=== PATIENT | male | born 1955 | race African-American/Black ===

== ENCOUNTER 2017-01-10 10:27 | Emergency (ER) | payer OTHER ==
--- NOTE | 2017-01-10 11:43 | DIAGNOSTIC IMAGING REPORT ---
PROCEDURE: XR RIBS UNILAT W/PA CHEST-LT INDICATION: PAIN TECHNIQUE: Two views of the left ribs with single PA view chest. COMPARISON: Chest 06/12/2015 FINDINGS: LEFT RIBS: There is a fracture of the left ninth rib. No suspicious rib lesions. CHEST: Normal cardiomediastinal contour. Clear lungs without pleural effusion, pneumothorax, or contusion. The other visible osseous structures are intact. IMPRESSION: 1. Fracture left 9th rib 2. No pneumothorax
--- NOTE | 2017-01-10 12:28 | ED ORDER SUMMARY ---
..... Patient: CAMMY JORDAN OrderSheet [facility] VisitID: [id number] [address] [place] [address] 61y, M Registration Date/Time: 01/10/2017 ORDER SHEET Weight: 68.0 kg (stated) Allergies: No Known Drug Allergy GENERAL ORDERS: Ribs Unilat w PA Chest Left Urgent (10:57 01/10/2017 Rosa Chris) (k 10:59 Ana) (11:25 Renaldo Hightower) MEDICATION ORDERS: IV FLUIDS: ORDER SHEET NOTES: [Electronically signed by Victorino Wheeler Dr. (21:44 01/10/2017)] [Electronically signed by Tatum Lopez R.N. (09:43 01/11/2017)] [Electronically locked/signed by Tatum Lopez R.N. (09:43 01/11/2017)]
--- NOTE | 2017-01-10 12:28 | ED NURSING NOTES ---
Clinical Report - Nurses Formerly [facility] [address] [place] [address] 01/10/2017 10:27 Patient: CAMMY JORDAN TRIAGE Triage time 10:39. Acuity: LEVEL 3. Chief Complaint: SHORTNESS OF BREATH and DIFFICULTY BREATHING. 10:39 01/10/17. 10:39 01/10/17. Alert. No acute distress. SEPSIS SCREEN: Sepsis Screen. Negative (no infection suspected/documented). --10:43 Jeremy Rose R.N. 10:39 01/10/17. BP: 157/100. HR: 102. RR: 20. O2 saturation: 97% on room air. Temp: 98.7 F (oral). Pain level now: 04/09. --10:43 Jeremy Rose R.N. ( Pt states last time he saw his PCP was 2 years ago, family states pt cannot see micro computer specialist until July). --10:46 Jeremy Rose R.N. Weight: 68 kg stated. Height/Length: 67 inches Per Patient. BMI: 23.5. --10:39 Jeremy Rose R.N. Medications Albuterol Sulfate HFA Inhalation, as needed. --10:41 Jeremy Rose R.N. Flonase Nasal. PredniSONE Oral 40 mg, daily. --10:41 Jeremy Rose R.N. Symbicort Inhalation. --10:42 Jeremy Rose R.N. Medication/allergy information source: the patient and patient's family. --10:43 Jeremy Rose R.N. Allergies No Known Drug Allergy. --10:41 Jeremy Rose R.N. History Arrived by private vehicle. Historian: patient. Accompanied by family. Primary physician (CORNELIUS LRENER). 10:39 01/10/17. ( Last Sunday, pt said he coughed and might of fractured a rib.). Treatment MODELING INSTRUCTOR: None. SOCIAL HX: Smoker- current status unknown (Quit 3 years ago). Heavy alcohol use; consumes 12-pack of beer a day. No drug use. No infectious disease exposure. ABUSE ASSESSMENT: No report of abuse. FALL RISK ASSESSMENT: Fall risk assessment completed. No fall risk identified. NUTRITIONAL RISK ASSESSMENT: The nutritional risk assessment revealed no deficiencies. FUNCTIONAL ASSESSMENT: Functional assessment: no impairments noted. LEARNING NEEDS ASSESSMENT: The learning needs assessment revealed no barriers. SKIN INTEGRITY ASSESSMENT: Skin integrity risk assessment completed. No skin integrity risk identified. --10:43 Jeremy Rose R.N. PAST MEDICAL HX: Immunizations: up-to-date. --10:43 Jeremy Rose R.N. PROBLEMS: Tachycardia. Chest Wall Pain. Atypical Chest Pain. Home oxygen. Alcoholism. Emphysema. COPD - Chronic Obstructive Pulmonary Disease. --10:42 Jeremy Rose R.N. ADDITIONAL SURGERIES: no known surgeries. Assessment 10:39 01/10/17. --10:43 Jeremy Rose R.N. Interventions 10:39 01/10/17. 10:39 01/10/17. ID and allergy band on patient. To treatment room. --10:43 Jeremy Rose R.N. PHYSICAL ASSESSMENT 10:43 01/10/17. Ambulatory to room. GENERAL / NEURO / PSYCH: Alert. Oriented X 4. RESPIRATORY: Mild respiratory distress. The patient can speak in full sentences. CVS: Capillary refill less than 2 seconds. SKIN: Skin is warm and dry. --10:43 Jeremy Rose R.N. NURSING PROGRESS NOTES 10:43 01/10/17. Two patient identifiers checked. Call light placed in reach. Side rails up x 2. Bed placed in lowest position. Brakes of bed on. Brakes of chair on. --10:43 Jeremy Rose R.N. 10:43 01/10/17. The plan of care for this patient has been created. Head of bed elevated. --10:43 Jeremy Rose R.N. 10:43 01/10/17. Patient ready for evaluation- chart flagged and notification provided. --10:43 Jeremy Rose R.N. 10:44 01/10/17. Pulse oximeter and NIBP monitor placed on patient; monitor alarms on. --10:44 Jeremy Rose R.N. 10:45 01/10/17. --10:45 Jeremy Rose R.N. 10:45 01/10/17. HR: 104. O2 saturation: 96% on room air. --10:45 Jeremy Rose R.N. 10:53 01/10/17. --10:54 Jeremy Rose R.N. 10:53 01/10/17. HR: 97. O2 saturation: 95% on room air. --10:54 Jeremy Rose R.N. 11:50 01/10/17. --11:50 Jeremy Rose R.N. 11:49 01/10/17. BP: 134/99. HR: 96. RR: 18. O2 saturation: 95%. Pain level now: 0/10. --11:50 Jeremy Rose R.N. 12:19 01/10/17. Patient and family informed about reason for wait and about plan of care. --12:19 Jeremy Rose R.N. 12:20 01/10/17. --12:20 Jeremy Rose R.N. 12:19 01/10/17. HR: 78. RR: 18. O2 saturation: 98% on room air. --12:20 Jeremy Rose R.N. DISPOSITION / DISCHARGE Departure time: 1238. Condition at departure: improved and stable. Reviewed medication(s) side effects, precautions, dosing and course information. Prescription(s) given to the patient. Activity restrictions reviewed. Patient and air drill operator verbalized understanding. Written instructions provided in [place]. The patient was discharged by the physician. He was discharged home and accompanied by air drill operator. He left the Emergency Department ambulatory and via private vehicle. Sales Merchandising Specialist driving. --12:39 Trei Jordan R.N. 12:38 01/10/17. BP: 144/93. HR: 89. RR: 16. O2 saturation: 97% on room air. Temp: 98.8 F. Pain level now 7/10. --12:39 Teri Jordan R.N. Locked/Released at 01/11/2017 9:43 by Tatum Lopez R.N.
--- NOTE | 2017-01-10 12:28 | ED ORDER SUMMARY ---
..... Patient: CAMMY JORDAN OrderSheet [facility] VisitID: [id number] [address] [place] [address] 61y, M Registration Date/Time: 01/10/2017 ORDER SHEET Weight: 68.0 kg (stated) Allergies: No Known Drug Allergy GENERAL ORDERS: Ribs Unilat w PA Chest Left Urgent (10:57 01/10/2017 Rosa Chris) (k 10:59 Ana) (11:25 Renaldo Hightower) MEDICATION ORDERS: IV FLUIDS: ORDER SHEET NOTES: [Electronically signed by Victorino Wheeler Dr. (21:44 01/10/2017)] [Electronically signed by Tatum Lopez R.N. (09:43 01/11/2017)] [Electronically locked/signed by Tatum Lopez R.N. (09:43 01/11/2017)]
--- NOTE | 2017-01-10 12:28 | ED CLINICAL REPORT ---
Clinical Report - Physicians/Mid Levels [facility] [address] [place] [address] 01/10/2017 10:27 Patient: CAMMY JORDAN Time Seen: 10:40; initial patient contact. Arrived- By private vehicle. Historian- patient. HISTORY OF PRESENT ILLNESS Chief Complaint: DYSPNEA and HISTORY OF CHRONIC OBSTRUCTIVE PULMONARY DISEASE. This started about 9 days ago and is still present. The dyspnea is described as moderate and is worsened by cough. The patient has had a cough and chest pain (L rib pain). No sputum production, fever, sweating episodes, wheezing or chills. No dyspnea on exertion or palpitations. Similar symptoms previously: None. Recent medical care: Not recently seen/assessed. REVIEW OF SYSTEMS No nasal discharge, sinus drainage, nausea, vomiting or abdominal pain. All systems otherwise negative, except as recorded above. PAST HISTORY Tachycardia. Chest Wall Pain. Atypical Chest Pain. Home oxygen. Alcoholism. Emphysema. COPD. SOCIAL HISTORY Former smoker, end date 2013. Heavy alcohol use. No drug use. ADDITIONAL NOTES The nursing notes have been reviewed. PHYSICAL EXAM Vital Signs: 01/10/2017 10:39 BP: 157/100. HR: 102. RR: 20. O2 saturation: 97%. Temp: 98.7 F. Pain level now: 7/10. Have been reviewed. Hypertensive. Tachycardic. Respiratory rate normal. Temperature normal. Oxygen saturation normal. Appearance: Alert. No acute distress. Eyes: Eyes normal inspection. ENT: Pharynx normal. CVS: Normal heart rate and rhythm. Heart sounds normal. Respiratory: No respiratory distress. Moderate left mid- and anterior chest wall tenderness. The tenderness is well-localized and reproduces the patient's subjective complaint. Breath sounds normal. Abdomen: Soft and nontender. No organomegaly. Skin: Normal skin color. No rash. Extremities: No calf tenderness. No lower extremity edema. Neuro: Oriented X 3. LABS, X-RAYS, AND EKG Sternum / Ribs X-rays: Normal lung markings present. (1. Fracture left 9th rib 2. No pneumothorax). Views: left ribs. PA of chest. Technique: good. The X-rays were independently viewed by me, interpreted by the radiologist and discussed with the radiologist. Prior films were not available for comparison. Interpretation time: 12:27. PROGRESS AND PROCEDURES Disposition: Discharged home in good and improved condition. Condition: good. CLINICAL IMPRESSION Single left rib fracture. INSTRUCTIONS No strenuous activity until released. Warnings: CONTROLLED SUBSTANCE WARNINGS: The reason for controlled substance is related to an acute injury. Reviewed the risks and benefits of the medication and tolerance and dependence. Discussed warnings with the patient. Your Current Medications: CONTINUE TAKING THE FOLLOWING MEDICATIONS: Albuterol Sulfate HFA Inhalation : prn. Flonase Nasal. PredniSONE Oral : 40 mg daily. Symbicort Inhalation. Prescription Medications: Hydrocodone/APAP 5mg / 325mg: take 1 orally every 6 hours as needed for pain. Dispense twenty (20). No refill. Follow-up: Follow up with your doctor in about two days. Call for an appointment. Screening today revealed the patient's blood pressure to be in the hypertensive range. The patient should follow up with a primary care provider for blood pressure management. (Electronically signed by Victorino Wheeler Dr. 01/10/2017 21:44)
--- NOTE | 2017-01-10 12:28 | ED NURSING NOTES ---
Clinical Report - Nurses [facility] [address] [place] [address] 01/10/2017 10:27 Patient: CAMMY JORDAN TRIAGE Triage time 10:39. Acuity: LEVEL 3. Chief Complaint: SHORTNESS OF BREATH and DIFFICULTY BREATHING. 10:39 01/10/17. 10:39 01/10/17. Alert. No acute distress. SEPSIS SCREEN: Sepsis Screen. Negative (no infection suspected/documented). --10:43 Jeremy Rose R.N. 10:39 01/10/17. BP: 157/100. HR: 102. RR: 20. O2 saturation: 97% on room air. Temp: 98.7 F (oral). Pain level now: 04/09. --10:43 Jeremy Rose R.N. ( Pt states last time he saw his PCP was 2 years ago, family states pt cannot see technical information specialist until July). --10:46 Jeremy Rose R.N. Weight: 68 kg stated. Height/Length: 67 inches Per Patient. BMI: 23.5. --10:39 Jeremy Rose R.N. Medications Albuterol Sulfate HFA Inhalation, as needed. --10:41 Jeremy Rose R.N. Flonase Nasal. PredniSONE Oral 40 mg, daily. --10:41 Jeremy Rose R.N. Symbicort Inhalation. --10:42 Jeremy Rose R.N. Medication/allergy information source: the patient and patient's family. --10:43 Jereym Rose R.N. Allergies No Known Drug Allergy. --10:41 Jeremy Rose R.N. History Arrived by private vehicle. Historian: patient. Accompanied by family. Primary physician (CORNELIUS LERNER). 10:39 01/10/17. ( Last Sunday, pt said he coughed and might of fractured a rib.). Treatment BATTERY BUILDER: None. SOCIAL HX: Smoker- current status unknown (Quit 3 years ago). Heavy alcohol use; consumes 12-pack of beer a day. No drug use. No infectious disease exposure. ABUSE ASSESSMENT: No report of abuse. FALL RISK ASSESSMENT: Fall risk assessment completed. No fall risk identified. NUTRITIONAL RISK ASSESSMENT: The nutritional risk assessment revealed no deficiencies. FUNCTIONAL ASSESSMENT: Functional assessment: no impairments noted. LEARNING NEEDS ASSESSMENT: The learning needs assessment revealed no barriers. SKIN INTEGRITY ASSESSMENT: Skin integrity risk assessment completed. No skin integrity risk identified. --10:43 Jeremy Rose R.N. PAST MEDICAL HX: Immunizations: up-to-date. --10:43 Jeremy Rose R.N. PROBLEMS: Tachycardia. Chest Wall Pain. Atypical Chest Pain. Home oxygen. Alcoholism. Emphysema. COPD - Chronic Obstructive Pulmonary Disease. --10:42 Jeremy Rose R.N. ADDITIONAL SURGERIES: no known surgeries. Assessment 10:39 01/10/17. --10:43 Jeremy Rose R.N. Interventions 10:39 01/10/17. 10:39 01/10/17. ID and allergy band on patient. To treatment room. --10:43 Jeremy Rose R.N. PHYSICAL ASSESSMENT 10:43 01/10/17. Ambulatory to room. GENERAL / NEURO / PSYCH: Alert. Oriented X 4. RESPIRATORY: Mild respiratory distress. The patient can speak in full sentences. CVS: Capillary refill less than 2 seconds. SKIN: Skin is warm and dry. --10:43 Jeremy Rose R.N. NURSING PROGRESS NOTES 10:43 01/10/17. Two patient identifiers checked. Call light placed in reach. Side rails up x 2. Bed placed in lowest position. Brakes of bed on. Brakes of chair on. --10:43 Jeremy Rose R.N. 10:43 01/10/17. The plan of care for this patient has been created. Head of bed elevated. --10:43 Jeremy Rose R.N. 10:43 01/10/17. Patient ready for evaluation- chart flagged and notification provided. --10:43 Jeremy Rose R.N. 10:44 01/10/17. Pulse oximeter and NIBP monitor placed on patient; monitor alarms on. --10:44 Jeremy Rose R.N. 10:45 01/10/17. --10:45 Jeremy Rose R.N. 10:45 01/10/17. HR: 104. O2 saturation: 96% on room air. --10:45 Jeremy Rose R.N. 10:53 01/10/17. --10:54 Jeremy Rose R.N. 10:53 01/10/17. HR: 97. O2 saturation: 95% on room air. --10:54 Jeremy Rose R.N. 11:50 01/10/17. --11:50 Jeremy Rose R.N. 11:49 01/10/17. BP: 134/99. HR: 96. RR: 18. O2 saturation: 95%. Pain level now: 0/10. --11:50 Jeremy Rose R.N. 12:19 01/10/17. Patient and family informed about reason for wait and about plan of care. --12:19 Jeremy Rose R.N. 12:20 01/10/17. --12:20 Jeremy Rose R.N. 12:19 01/10/17. HR: 78. RR: 18. O2 saturation: 98% on room air. --12:20 Jeremy Rose R.N. DISPOSITION / DISCHARGE Departure time: 1238. Condition at departure: improved and stable. Reviewed medication(s) side effects, precautions, dosing and course information. Prescription(s) given to the patient. Activity restrictions reviewed. Patient and clinical safety manager verbalized understanding. Written instructions provided in [place]. The patient was discharged by the physician. He was discharged home and accompanied by clinical safety manager. He left the Emergency Department ambulatory and via private vehicle. Plastic Surgery Assistant driving. --12:39 Teri Jordan R.N. 12:38 01/10/17. BP: 144/93. HR: 89. RR: 16. O2 saturation: 97% on room air. Temp: 98.8 F. Pain level now 7/10. --12:39 Teri Jordan R.N. Locked/Released at 01/11/2017 9:43 by Tatum Lopez R.N.
--- NOTE | 2017-01-11 09:43 | ED DISCHARGE INSTRUCTIONS ---
Patient: CAMMY JORDAN General Instructions [facility] VisitID: [id number] [place] [address] 61y, M Registration Date/Time: 01/10/2017 Single left rib fracture. INSTRUCTIONS No strenuous activity until released. Warnings: CONTROLLED SUBSTANCE WARNINGS: The reason for controlled substance is related to an acute injury. Reviewed the risks and benefits of the medication and tolerance and dependence. Discussed warnings with the patient. Your Current Medications: CONTINUE TAKING THE FOLLOWING MEDICATIONS: Albuterol Sulfate HFA Inhalation : prn. Flonase Nasal. PredniSONE Oral : 40 mg daily. Symbicort Inhalation. Prescription Medications: Hydrocodone/APAP 5mg / 325mg: take 1 orally every 6 hours as needed for pain. Dispense twenty (20). No refill. Follow-up: Follow up with your doctor in about two days. Call for an appointment. Screening today revealed the patient's blood pressure to be in the hypertensive range. The patient should follow up with a primary care provider for blood pressure management. ADDITIONAL INFORMATION Rib Fracture You have a fracture (break) of one or more ribs. Rib fractures do not require a cast like other bones. They will heal by themselves in about 4-6 weeks. The first 3-4 weeks will be the most painful because deep breathing, coughing or changing position from sitting to lying down, may cause the broken ends to move slightly. Home Care: Rest. You should not be doing any heavy lifting or strenuous exertion until the pain goes away. Because it hurts to breathe when you have a broken rib, there is risk of getting pneumonia from poor airflow through your lungs. To prevent this: Take four very deep breaths at least four times a day (exhale through pursed lips as if you are blowing up a balloon). If an "incentive spirometer" (breathing exercise device) was given to you, use it at least four times a day, or as directed. Apply an ice pack (ice cubes in a plastic bag, wrapped in a towel) over the injured area for 20 minutes every 1-2 hours the first day. Continue with ice packs 3-4 times a day for the next two days, then as needed for the relief of pain and swelling. You may use acetaminophen (Tylenol) or ibuprofen (Motrin, Advil) to control pain, unless another pain medicine was prescribed. [NOTE: If you have chronic liver or kidney disease or ever had a stomach ulcer or GI bleeding, talk with your doctor before using these medicines.] If your pain is not controlled by the treatment given, contact your doctor. Sometimes a stronger pain medicine may be needed. A nerve block (numbing the nerve between the ribs) can be performed in case of severe pain. Follow Up with your doctor during the next week, or as advised. Rarely, a broken rib will cause complications within the first few days that may not be evident during your initial exam (such as, collapsed lung, bleeding around the lung or into the abdomen, or pneumonia). Therefore, watch for the signs below. [NOTE: If x-rays were taken, they will be reviewed by a radiologist. You will be notified of any new findings that may affect your care.] Get Prompt Medical Attention if any of the following occur: Shortness of breath Increasing chest pain with breathing Dizziness, weakness or fainting New or worsening abdominal pain Fever of 100.4F (38C) or higher, or as directed by your healthcare provider Congested cough Hydrocodone Bitartrate, Acetaminophen Oral tablet What is this medicine? ACETAMINOPHEN; HYDROCODONE (a set a UDAY cierra fen; teresa droe KOE done) is a pain reliever. It is used to treat mild to moderate pain. How should I use this medicine? Take this medicine by mouth. Swallow it with a full glass of water. Follow the directions on the prescription label. If the medicine upsets your stomach, take the medicine with food or milk. Do not take more than you are told to take. Talk to your mineral mixer regarding the use of this medicine in children. This medicine is not approved for use in children. What side effects may I notice from receiving this medicine? Side effects that you should report to your doctor or health managed care specialist as soon as possible: allergic reactions like skin rash, itching or hives, swelling of the face, lips, or tongue breathing problems confusion feeling faint or lightheaded, falls stomach pain yellowing of the eyes or skin Side effects that usually do not require medical attention (report to your doctor or health managed care specialist if they continue or are bothersome): nausea, vomiting stomach upset What may interact with this medicine? alcohol antihistamines isoniazid medicines for depression, anxiety, or psychotic disturbances medicines for sleep muscle relaxants naltrexone narcotic medicines (opiates) for pain phenobarbital ritonavir tramadol What if I miss a dose? If you miss a dose, take it as soon as you can. If it is almost time for your next dose, take only that dose. Do not take double or extra doses. Where should I keep my medicine? Keep out of the reach of children. This medicine can be abused. Keep your medicine in a safe place to protect it from theft. Do not share this medicine with anyone. Selling or giving away this medicine is dangerous and against the law. Store at room temperature between 15 and 30 degrees C (59 and 86 degrees F). Protect from light. Keep container tightly closed. Throw away any unused medicine after the expiration date. Discard unused medicine and used packaging carefully. Pets and children can be harmed if they find used or lost packages. What should I tell my health care provider before I take this medicine? They need to know if you have any of these conditions: brain tumor Crohn's disease, inflammatory bowel disease, or ulcerative colitis drink more than 3 alcohol-containing drinks per day drug abuse or addiction head injury heart or circulation problems kidney disease or problems going to the bathroom liver disease lung disease, asthma, or breathing problems an unusual or allergic reaction to acetaminophen, hydrocodone, other opioid analgesics, other medicines, foods, dyes, or preservatives or trying to get breast-feeding What should I watch for while using this medicine? Tell your doctor or health managed care specialist if your pain does not go away, if it gets worse, or if you have new or a different type of pain. You may develop tolerance to the medicine. Tolerance means that you will need a higher dose of the medicine for pain relief. Tolerance is normal and is expected if you take the medicine for a long time. Do not suddenly stop taking your medicine because you may develop a severe reaction. Your body becomes used to the medicine. This does NOT mean you are addicted. Addiction is a behavior related to getting and using a drug for a non-medical reason. If you have pain, you have a medical reason to take pain medicine. Your doctor will tell you how much medicine to take. If your doctor wants you to stop the medicine, the dose will be slowly lowered over time to avoid any side effects. You may get drowsy or dizzy when you first start taking the medicine or change doses. Do not drive, use machinery, or do anything that may be dangerous until you know how the medicine affects you. Stand or sit up slowly. There are different types of narcotic medicines (opiates) for pain. If you take more than one type at the same time, you may have more side effects. Give your health care provider a list of all medicines you use. Your doctor will tell you how much medicine to take. Do not take more medicine than directed. Call emergency for help if you have problems breathing. The medicine will cause constipation. Try to have a bowel movement at least every 2 to 3 days. If you do not have a bowel movement for 3 days, call your doctor or health managed care specialist. Too much acetaminophen can be very dangerous. Do not take Tylenol (acetaminophen) or medicines that contain acetaminophen with this medicine. Many non-prescription medicines contain acetaminophen. Always read the labels carefully. You have been given the following additional information: Fracture, Rib Hydrocodone Bitartrate, Acetaminophen Oral tablet No strenuous activity until released. (Electronically signed by Victorino Wheeler Dr. 01/10/2017 21:44)
--- NOTE | 2017-01-11 09:43 | ED MED RECONCILIATION SUMMARY ---
Patient: CAMMY JORDAN Medication Reconciliation Report [facility] VisitID: [id number] [address] [place] [address] 61y, M Registration Date/Time: 01/10/2017 Weight: 68.0 kg Height/Length: 67 in. BMI: 23.5 ALLERGIES: No Known Drug Allergy The patient's Home Medications are listed below: CONTINUE TAKING THE FOLLOWING MEDICATIONS: Albuterol Sulfate HFA Inhalation Flonase Nasal PredniSONE Oral 40 mg, daily Symbicort Inhalation The source(s) of the original Home Medication information: patient's family member patient The following Medications were given to the patient in the Emergency Department: None. The following Medications were prescribed to the patient: Hydrocodone/APAP 5mg / 325mg: take 1 orally every 6 hours as needed for pain. Dispense twenty (20). No refill. -- Victorino Wheeler Dr.
--- NOTE | 2017-01-11 09:43 | ED MED RECONCILIATION SUMMARY ---
Patient: CAMMY JORDAN Medication Reconciliation Report [facility] VisitID: [id number] [address] [place] [address] 61y, M Registration Date/Time: 01/10/2017 Weight: 68.0 kg Height/Length: 67 in. BMI: 23.5 ALLERGIES: No Known Drug Allergy The patient's Home Medications are listed below: CONTINUE TAKING THE FOLLOWING MEDICATIONS: Albuterol Sulfate HFA Inhalation Flonase Nasal PredniSONE Oral 40 mg, daily Symbicort Inhalation The source(s) of the original Home Medication information: patient's family member patient The following Medications were given to the patient in the Emergency Department: None. The following Medications were prescribed to the patient: Hydrocodone/APAP 5mg / 325mg: take 1 orally every 6 hours as needed for pain. Dispense twenty (20). No refill. -- Victorino Wheeler Dr.
--- NOTE | 2017-01-11 09:43 | ED MAR SUMMARY ---
..... Medication Administration Record [facility] [address], [place] [id number] Patient: CAMMY JORDAN Visit ID: [id number] 61y, M Weight: 68.0 kg Height/Length: 67 in BMI: 23.5 ALLERGIES: No Known Drug Allergy
--- NOTE | 2017-01-11 09:43 | ED MAR SUMMARY ---
..... Medication Administration Record [facility] [address] [place], [place] [id number] Patient: CAMMY JORDAN Visit ID: [id number] 61y, M Weight: 68.0 kg Height/Length: 67 in BMI: 23.5 ALLERGIES: No Known Drug Allergy
== END 2017-01-10 12:38 | disposition home or self-care (01) ==
LOC: ED SRH 10:27
DX: S22.32XA Fracture of one rib, left side, initial encounter for closed fracture (principal); X58.XXXA Exposure to other specified factors, initial encounter; Y93.89 Activity, other specified; Y99.9 Unspecified external cause status; Y92.9 Unspecified place or not applicable; J44.9 Chronic obstructive pulmonary disease, unspecified; Z87.891 Personal history of nicotine dependence; Z79.51 Long term (current) use of inhaled steroids

== ENCOUNTER 2017-02-16 12:15 | Outpatient (CLI) | payer OTHER ==
--- NOTE | 2017-02-16 12:31 | DIAGNOSTIC IMAGING REPORT ---
PROCEDURE: XR CHEST 2 VIEW INDICATION: PRE OP TECHNIQUE: PA and lateral views. COMPARISON: Chest 05/12/2015 FINDINGS: Lungs are clear. COPD. Heart and mediastinum are normal. Thorax is normal. IMPRESSION: 1. Negative chest.
== END 2017-02-16 23:00 ==
LOC: XR SRH 12:15
DX: Z01.811 Encounter for preprocedural respiratory examination (principal)